=== PATIENT | male | born 1975 | race American Indian/Alaskan Native ===

== ENCOUNTER → 2023-11-30 | Outpatient (CLI) | payer SELFPAY ==
--- NOTE | 2023-11-30 17:26 | RAD_ITS ---
STUDY: X-RAY - RIGHT FOOT CLINICAL: Male, 47 years old. right foot injury TECHNIQUE: 4 view(s) of the foot. COMPARISON: None. FINDINGS: Normal talus, calcaneus, and tarsal bones. Normal visualized subtalar, talonavicular, calcaneocuboid, tarsal and tarsometatarsal articulations. Normal metatarsi. Normal metatarsophalangeal joint of the great toe. Normal tibial and fibular sesamoid bones. Normal interphalangeal joint of the great toe. Normal phalanges of the great toe. Normal second through fifth metatarsophalangeal joints. Normal interphalangeal joints and phalanges of the lesser toes. The soft tissue structures are unremarkable. RAD/Foot min 3 Views IMPRESSION: Normal x-ray examination of the foot. Electronically Signed: Junior Watts MD at 19:53 EST ,
--- OUTSIDE RECORDS SUMMARY | 2023-11-30 21:06 | XMS RPT_ITS | CCD ---
Author Name Unknown Address [facility] [place] [address] Organization [facility] Care Team Providers Care Legal Service Specialist Name Role Phone Sara DONIS, Robert Primary Care Provider [phone] TONYA DOMINGO Referring Unavailable ROBERT MALIK Primary Care Unavailable TONYA DOMINGO Attending Unavailable ROBERT MALIK Referring Unavailable ROBERT MALIK Primary Care Unavailable Problems Active Problems Problem Classification Problem Date Documented Da te Episodic/Chronic Diabetes mellitus without complication (1 source) Prediabetes; Translations: [Prediabetes] Episodic Immunizations and screening for infectious disease (1 source) Needs influenza immunization; Translations: [Encounter for immunization] Episodic Past or Other Problems Problem Classification Problem Date Documented Da te Episodic/Chronic Contraceptive and procreative management (4 sources) Patient encounter status; Translations: [Encounter for fertility testing] Onset: 05-26-2016 05-26-2016 Episodic Results Test Name Value Interpretation Reference Range Facil ity Vital Signs Date Time Vital Sign Value Performing Clinician Faci lity 09-06-2022 10:120500 Body height 172.7 cm Robert Malik MD Work Phone: [facility] 09-06-2022 10:12-050 Body weight 105.23 kg Robert Malik MD Work Phone: [facility] 09-06-2022 10:12-0500 Diastolic blood pressure 70 mm[Hg] Robert Malik MD Work Phone: [facility] 09-06-2022 10:12-0500 Heart rate 75 /min Robert Malik MD Work Phone: [facility] 09-06-2022 10:12-0500 Respiratory rate 12 /min Robert Malik MD Work Phone: [facility] 09-06-2022 10:120500 SaO2% (BldA) [Mass fraction] 100 % Robert Malik MD Work Phone: [facility] 09-06-2022 10:120500 Systolic blood pressure 122 mm[Hg] Robert Malik MD Work Phone: [facility] Encounters Encounter Date Encounter Type Care Provider Facility Start: 10-31-2023 Telephone encounter Robert monet MD Work Phone: [facility] Start: 09-06-2023 End: 09-07-[address] [facility] Facility[facility] Start: 09-06-2023 Encounter for genera l adult medical examination without abnormal findings TONYA DOMINGO [facility] Start: 09-05-2023 End: 09-05-[address] [facility] Facility:[facility] Start: 09-06-2022 End: 09-06-2022 Patient encounter procedure Robert Malik MD Work Phone: [facility] Procedures Date Procedure Procedure Detail Performing Clinician Start: 09-06-2023 Lipid 1996 panel - S love or Plasma Robert Malik MD Work Phone: Start: 09-06-2022 INFLUENZA VACCINE QUADRIVALENT 6 MO - 64 YRS IM Robert Malik MD Work Phone: Plan of Treatment Date Care Activity Detail Author Start: 09-05-2033 Urine microalbumin profile DTa P,Tdap,Td Vaccine (2 - Td or Tdap) [facility] Start: 09-06-2028 Lipid panel Lipid Screening [facility] Start: 09-09-2026 LIPID SCREEN LIPID SCREEN [facility] Start: 09-06-2026 Diabetes Screening Diabetes Screenin g [facility] Start: 09-05-2024 Hepatitis C screening Hepatitis C [facility] Immunizations Immunization Date Immunization Notes Care Provider Fa shabana 09-05-2023 COVID-19 vaccine, ag e 12+ yr, 2022- season ([email or web address]) Robert Malik MD Work Phone: [facility] 09-05-2023 tetanus toxoid, redu renea diphtheria toxoid, and acellular pertussis vaccine, adsorbed Robert Malik MD Work Phone: [facility] 09-06-2022 influenza, injectabl e, quadrivalent, contains preservative Robert Malik MD Work Phone: [facility] Work Phone: 09-06-2022 influenza virus vaccine, unspecified formulation Robert Malik MD Work Phone: [facility] 09-16-2021 influenza, injectabl e, quadrivalent, contains preservative Robert Malik MD Work Phone: [facility] Work Phone: 10-23-2016 influenza, injectabl e, quadrivalent, contains preservative Robert Malik MD Work Phone: [facility] Payers Date Payer Category Payer Unknown LIMITED BENEFITS PLAN LIMITED BENEFITS GENERIC [id number] 2023-2024 [address] [place] [address] Other [id number] Social History Date Type Detail Facility Start: 09-06-2022 Tobacco smoking stat [facility] Never smoked tobacco [facility] Work Phone: Start: 09-06-2022 Tobacco use and exposure User of smokeless tobacco [facility] Work Phone: Start: 09-06-2022 End: 09-05-2023 Alcohol intake Current drinker of alcohol (finding) [facility] Start: 09-06-2022 End: 10-23-2022 Alcohol intake [facility] Start: 09-03-2020 History SDOH Alcohol Frequency 4 [facility] Start: 09-03-2020 History SDOH Alcohol Std Drinks 1 [facility] Start: 09-03-2020 History SDOH Social Connections Get Together 2 [facility] Start: 09-03-2020 History SDOH Social Connections Living 3 [facility] Start: 09-03-2020 History SDOH Financial 5 [facility] Start: 09-03-2020 Education 12 [facility] Start: 10-23-2016 Alcohol Comment sometimes vodka [facility] Start: 1975 Sex Assigned At Not on file [facility] Start: 09-03-2020 End: 10-23-2022 Social connection and isolation panel [facility] Do you belong to any clubs or organizations such as adventism groups, unions, fraternal or athletic groups, or school groups? No [facility] Are you now , , , , never or living with a partner? [facility] How often to you hav e a drink containing alcohol? 2-3 time sa week [facility] How many standard dr inks containing alcohol do you have on a typical day? 1 or 2 [facility] How often do you hav e 6 or more drinks on 1 occasion? Never [facility] How hard is it for y ou to pay for the very basics like food, housing, medical care, and heating Not hard at all [facility] Do you feel stress - tense, restless, nervous, or anxious, or unable to sleep at night because your mind is troubled all the time - these days [OSQ] Not at all [facility] (I/We) worried wheth er (my/our) food would run out before (I/we) got money to buy more. Never true [facility] Note 10-31-2023 Telephone Encounter - Jamila Gerber - 10/31/2023 10:22 AM EST Note Date & Type Note Facility 10-31-2023 Miscellaneous Notes Formattin g of this note might be different from the original. patient declined since we are out of network and insurance / PFA denied procedure documented in this encounter [facility] Progress note 09-05-2023 Note Date & Type Note Facility 09-05-2023 Note HNO ID: [id number] Author: Tonya Domingo APRN.LEGAL ADMINISTRATIVE SECRETARY Service: ? Author Type: Nurse Practitioner Type: Progress Notes Filed: 09/05/2023 8:51 AM Note Text: Chief Complaint Patient presents with: Physical HPI Pj Guzman is a 47 year old male who presents here today for Above Complaints. Pj is an established patient of Dr. Malik. He is a new patient to me today. Here today for routine physical exam. No concerns or complaints. Heading to [place] next week x 4 weeks. Wanting to get up to date on vaccines. Eats healthy, well balanced meals. Past medical history, appointments, medications, allergies reviewed. Previous Medical History No past medical history on file. Previous Surgical History PAST SURGICAL HISTORY Procedure Laterality Date APPENDECTOMY 1985 Family History FAMILY HISTORY Problem Relation Age of Onset Diabetes Mother other (Other) Sister Patient Allergies ALLERGIES No Known Allergies Current Medications No current outpatient medications on file prior to visit. No current facility-administered medications on file prior to visit. Social History Social History Tobacco Use Smoking status: Never Smokeless tobacco: Current Substance Use Topics Alcohol use: Yes Alcohol/week: 4.0 standard drinks of alcohol Types: 4 Cans of Beer (12oz) per week Comment: sometimes vodka Drug use: No REVIEW OF SYSTEMS: as above Reviewed relevant PMHx, PSHx, Social Hx, current medications and allergies. Review of Symptoms REVIEW OF SYSTEMS See HPI. EXAM: BP 122/78 (BP Site: Left Arm, BP Position: Sitting, BP Cuff Size: Large Adult) Pulse 72 Resp 12 Ht 177 cm (5' 9.69 ) Wt 109.4 kg (241 lb 3.2 oz) BMI 34.92 kg/m? General Appearance: Well appearing, alert, in no acute distress, well-hydrated, well nourished.. Skin: Skin color, texture, turgor normal, no suspicious rashes or lesions. Head: Normocephalic, no masses, lesions, tenderness or abnormalities. Lungs: Lungs clear to auscultation. No wheezing, rhonchi, rales.. Heart: RRR without murmur, gallop, or rubs. No ectopy. Abdomen: Normal abdominal exam, Abdomen soft, non-tender. Bowel sounds normal. No masses, organomegaly. Extremities: No deformities, edema, skin discoloration, clubbing or cyanosis. Good capillary refill. . Musculoskeletal: No joint swelling, deformity, or tenderness. Peripheral Pulses: Normal. Neurologic: Gait normal. Reflexes normal and symmetric. Sensation grossly intact.. Health Maintenance List Hepatitis B Vaccine(1 of 3 - 3-dose series) Never done Hepatitis C Screening Never done HIV Screening Never done DTaP,Tdap,Td Vaccine(1 - Tdap) Never done Depression Assessment due on 09/26/2022 Colorectal Cancer Screening Never done Covid-19 Vaccine(4 - season) due on 05/27/2023 Influenza Vaccine(1) due on 03/25/2024 Diabetes Screening due on 09/09/2024 Lipid Screening due on 09/09/2026 HPV Vaccine Aged Out ASSESSMENT/PLAN: 1. Wellness examination - ICD9: V70.0, ICD10: Z00.00 (primary diagnosis) - Counseled on healthy diet and regular exercise - Colorectal cancer screening recommended - agrees to Colonoscopy - Depression screening tool completed and reviewed with patient. Based on score and interview, patient is not at risk for depression and recommended no further intervention at this time. - Follow up for annual exam in one year - PFIZER-BIONTECH COVID-19 VACCINE ( SEASON) AGE 12+ YR - TDAP VACCINE, AGE 7+ YR (ADACEL, BOOSTRIX) - HGB A1C - COMP METABOLIC PANEL - CBC + DIFF - LIPID PANEL BASIC 2. Encounter for immunization - ICD9: V03.89, ICD10: Z23 - PFIZER-BIONTECH COVID-19 VACCINE ( SEASON) AGE 12+ YR - TDAP VACCINE, AGE 7+ YR (ADACEL, BOOSTRIX) 3. Special screening for malignant neoplasms, colon - ICD9: V76.51, ICD10: Z12.11 - COLONOSCOPY SCREENING RTO as needed. Prescription instructions reviewed with patient as applicable. Potential red flag symptoms discussed with the patient. Reviewed appropriate action plan to take if red flag symptoms occur. Patient agreeable to treatment plan. Tonya Brunner, JERICA.LEGAL ADMINISTRATIVE SECRETARY [address] [place] [address] [facility] History of Present illness Narrative 09-06-2022 Robert Malik MD - 09/06/2022 10:18 AM EST Note Date & Type Note Facility 09-06-2022 History of Presen t illness Narrative Reason for Visit Patient presents with: Immunizations: Flu vaccination Pj Guzman is a 46 year old male who presents here today for CPE. Health Maintenance HEPATITIS B(1 of 3 - 3-dose series) HEPATITIS C SCREENING HIV SCREENING DTAP,TDAP,TD(1 - Tdap) DEPRESSION ASSESSMENT COVID-19 VACCINE(4 - Booster for Moderna series) INFLUENZA(1) HPI Patient is feeling well today and voices no concerns. Most recent lab work done in [place]. HgbA1c: 6.1 from 5.9 Lipids: LDL 177 from 162 Diet: 2 meals a day and couple of snacks throughout the day. Monitors salt and sugar. Lipids trending up. Sleep: Sleeping well. Averages 9 hours a night. Hx of snoring, however denies any hx of apnea while sleeping. Exercise: Volleyball a couple a days. 3 hours. Labs reviewed with patient. Discussed healthy lifestyle modifications. The 10-year ASCVD risk score (Omega OBRIEN, et al., 2019) is: 3.3% Values used to calculate the score: Age: 46 years Sex: Male Is Non- : No Diabetic: No Tobacco smoker: No Systolic Blood Pressure: 122 mmHg Is BP treated: No HDL Cholesterol: 44 mg/dL Total Cholesterol: 268 mg/dL No problem-specific Assessment & Plan notes found for this encounter. No past medical history on file. PAST SURGICAL HISTORY Procedure Laterality Date APPENDECTOMY 1985 FAMILY HISTORY Problem Relation Age of Onset Diabetes Mother other (Other) Sister Social History Tobacco Use Smoking status: Never Smokeless tobacco: Current Substance Use Topics Alcohol use: Yes Alcohol/week: 10.0 standard drinks Types: 4 Cans of Beer (12oz) per week Comment: sometimes vodka Drug use: No Past medical history, appointments, medications, allergies reviewed. Pertinent Lab/Diagnostic Studies are reviewed and discussed today No current outpatient medications on file. Review of Systems CONSTITUTIONAL: No fevers, chills, nightsweats, unintended weight loss HEENT: Denies frequent or severe heaches, nasal congestion/sinus symptoms, problematic allergy problems. EYES: No diplopia or blurry vision. CARDIOVASCULAR: No chest pain, dyspnea, palpitations, orthopnea, PND, ankle edema. PULM: No dyspnea, unexplained cough. GI: No dysphagia/odynophagia, problematic reflux, constipation, diarrhea, changes in stool habits, hematochezia, melena. : No new urinary complaints, including dysuria, gross hematuria or pyuria. NEURO: No new balance problems, peripheral weakness/paresthesias or numbness of concern. MUSC-SKEL: No new joint pain, swelling, or erythema. PSY: No concerns regarding depression, anxiety or panic. INTEGUMENTARY: No new skin changes (rash, new or changing mole, new growth) Physical Exam BP 122/70 (BP Site: Left Arm, BP Position: Sitting, BP Cuff Size: Large Adult) Pulse 75 Resp 12 Ht 172.7 cm (5' 8 ) Wt 105.2 kg (232 lb) SpO2 100% BMI 35.28 kg/m General appearance: Well appearing, alert, in no acute distress, well-hydrated, well nourished. Skin: Skin color, texture, turgor normal, no suspicious rashes or lesions Head: Normocephalic, no masses, lesions, tenderness or abnormalities Eyes: Anicteric sclera. Pupils are equally round and reactive to light. Extraocular movements are intact. Ears: External ears normal, canals clear Nose/Sinuses: Nares normal, septum midline, mucosa normal, no drainage or sinus tenderness Oropharynx: Lips, mucosa, and tongue normal, teeth and gums normal, oropharynx normal Neck: Supple, no adenopathy; thyroid symmetric, normal size, no bruits Back: Normal exam Lungs: Lungs clear to auscultation. No wheezing, rhonchi, rales Heart: RRR without murmur, gallop, or rubs. No ectopy Abdomen: Normal abdominal exam, Abdomen soft, non-tender. Bowel sounds normal. No masses, organomegaly Extremities: No deformities, edema, skin discoloration, clubbing or cyanosis. Good capillary refill. Musculoskeletal: No joint swelling, deformity, or tenderness Peripheral pulses: Normal Neuro: Gait normal. Reflexes normal and symmetric. Sensation grossly intact. ASSESSMENT/PLAN: 1. Annual physical exam - ICD9: V70.0, ICD10: Z00.00 (primary diagnosis) - Counseled on healthy diet and regular exercise 2. Need for influenza vaccination - ICD9: V04.81, ICD10: Z23 - INFLUENZA VACCINE QUADRIVALENT 6 MO - 64 YRS IM 3. Prediabetes - ICD9: 790.29, ICD10: R73.03 - HGB A1C Robert Malik MD documented in this encounter [facility] Evaluation note Note Date & Type Note Facility documented in this encounter [facility] Summary Purpose Family History No Family History Records Found Advance Directives No Advanced Directives Records Found Additional Source Comments Source Comments (unrecognize d section and content) In the event this informatio n is protected by the Federal Confidentiality of Alcohol and Drug Abuse Patient Records regulations: The Federal rules restrict any use of the information to criminally investigate or prosecute any alcohol or drug abuse patient.[facility] the event this information is protected by the Federal Confidentiality of Alcohol and Drug Abuse Patient Records regulations: The Federal rules restrict any use of the information to criminally investigate or prosecute any alcohol or drug abuse patient.[facility] Reason for Visit (unrecogniz ed section and content) Specialty Diagnoses / Procedures Referred By Christopher headley Referred To Contact FAMILY MEDICINE Diagnoses Annual Physical Procedures OV Robert Malik MD [address] [place] [address] [facility] [address] [place] [address] Referral ID Status Reason Start Date Expiration Date V isits Requested Visits Authorized [id number] Closed OON/Self Pay Override Financial Clearance Required - Self Pay Patient Cleared - Qualified [id number]/[id number] 09/08/2021 12/06/2021 99 99 Care Teams (unrecognized sec tion and content) Legal Service Specialist Relationship Specialty Start Date End Date Robert Malik MD [address] [place] [phone] PCP - General Internal Medicine 08/17/17 (unrecognized sect ion and content) No Status Records Found INFORMATION SOURCE (unrecogn ized section and content) FOR RECORDS PERTAINING TO PATIENTS WHO ARE OR HAVE BEEN ENROLLED IN A CHEMICAL DEPENDENCY/SUBSTANCEABUSE PROGRAM, SOME INFORMATION MAY BE OMITTED. This clinical summary was aggregated from multiple sources. Caution should be exercised in using it in the provision of clinical care. This summary normalizes information from multiple sources, and as a consequence, information in this document may materially change the coding, format and clinical context of patient data. In addition, data may be omitted in some cases. CLINICAL DECISIONS SHOULD BE BASED ON THE PRIMARY CLINICAL RECORDS. [employer] provides no warranty or guarantee of the accuracy or completeness of information in this document.
== END | disposition home or self-care (01) ==
PROVIDERS: PCP Internal Medicine; Referring Provider Physician Assistant; Visit Provider Physician Assistant
DX: S99.921A Unspecified injury of right foot, initial encounter (principal); X58.XXXA Exposure to other specified factors, initial encounter
CPT/HCPCS: 73630